=== PATIENT | male | born 1990 | race Caucasian/White ===

== ENCOUNTER 2024-03-14 19:30 | Emergency (ER) | payer BC, SELFPAY ==
--- NOTE | 2024-03-14 21:06 | EDPHYS ---
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 Denies abd pain, blood in toilet, rectal pain. States he has been having diarrhea on and off due to lactose intolerance. . Historical: - Allergies: 19:59 No Known Allergies; nj1 - PMHx: 19:59 None; nj1 - PSHx: 19:59 None; nj1 - Infectious Disease History:: Denies. - Social history:: Smoking status: Reported history of juuling and/or vaping. ROS: 21:06 Constitutional: As per HPI kb Exam: 21:06 Constitutional: This is a well developed, well nourished patient who is awake, alert, kb and in no acute distress. Head/Face: Normocephalic, atraumatic. ENT: Moist Mucous membranes Cardiovascular: Regular rate Respiratory: Respirations even and unlabored. No increased work of breathing. Talking in full sentences Abdomen/GI: Soft, non-tender. No distention Skin: Warm, dry with normal turgor. Normal color. MS/ Extremity: Pulses equal, no cyanosis. Neurovascular intact. Full, normal range of motion. Neuro: Awake and alert, GCS 15, oriented to person, place, time, and situation. Moves all extremities. Normal gait. 21:06 Abdomen/GI: Rectal exam: hemorrhoid(s), external, with thrombosis, without bleeding, without inflammation, without thrombosis, the exam is chaperoned by the nurse, Vital Signs: 19:57 BP 132 / 76; Pulse 84; Resp 18; Temp 98.8(O); Pulse Ox 100% ; Weight 122.47 kg; Height nj1 6 ft. 2 in. ; 21:03 BP 130 / 83; Pulse 77; Resp 18; Pulse Ox 97% on R/A; cm10 19:57 Body Mass Index 34.67 (122.47 kg, 187.96 cm) nj1 MDM: 19:41 Patient medically screened. kb 21:06 Differential diagnosis: fissure, hemorrhoids, GI bleed. Data reviewed: vital signs, kb nurses notes. Test considered but Not performed: Labs: cbc, cmp considered, but no active bleeding, no abd pain or tenderness, VSS, afebrile. 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 Administered Medications: No medications were administered Disposition Summary: 03/14/24 21:05 Discharge Ordered Notes: Location: Home kb Condition: Stable kb Diagnosis - Other hemorrhoids kb Followup: kb - With: Emergency Department - When: As needed - Reason: Worsening of condition Followup: kb - With: Private Physician - When: 2 - 3 days - Reason: Recheck today's complaints, Continuance of care, Re-evaluation by your physician Discharge Instructions: - Discharge Summary Sheet kb - Hemorrhoids, [id number] kb Forms: - Medication Reconciliation Form kb - Thank You Letter kb - Antibiotic Education kb - Prescription Opioid Use kb - Patient Portal Instructions kb - Leadership Thank You Letter kb Addendum: 03/16/2024 07:13 I was immediately available for consultation during this patient's visit. I did not e c2 personally see the patient or discuss the patient with the MACHELLE. . Signatures: Radha Gaytan FNP-C FNP-Debbie Turner, RN RN nj1 Jagjit Fish MD MD ec2
--- NOTE | 2024-03-14 21:06 | ER ---
[facility]urse's Notes [facility] Name: Landon Bal Age: 33 yrs Sex: Male : 1990 Arrival Date: 03/14/2024 Time: 19:30 Bed 16 Private MD: Diagnosis: Other hemorrhoids Presentation: 03/14 19:57 Chief complaint: Patient states: Saw blood when he wiped after he used the bathroom nj1 today. Coronavirus screen: Vaccine status: Patient reports receiving the 2nd dose of the covid vaccine. Ebola Screen: Patient denies travel to an Ebola-affected area in the 21 days before illness onset. Initial Sepsis Screen: Does the patient meet any 2 criteria? No. Patient's initial sepsis screen is negative. Does the patient have a suspected source of infection? No. Patient's initial sepsis screen is negative. Risk Assessment: Do you want to hurt yourself or someone else? Patient reports no desire to harm self or others. Onset of symptoms was March 14, 2024. 19:57 Method Of Arrival: Ambulatory [facility] 19:57 Acuity: TRACEE 3 [facility] Triage Assessment: 20:00 General: Appears in no apparent distress. comfortable, Behavior is calm, cooperative, nj1 appropriate for age. Pain: Denies pain. Historical: - Allergies: 19:59 No Known Allergies; nj1 - PMHx: 19:59 None; nj1 - PSHx: 19:59 None; nj1 - Infectious Disease History:: Denies. - Social history:: Smoking status: Reported history of juuling and/or vaping. Screenin:03 [facility] ED Fall Risk Assessment (Adult) History of falling in the last 3 months, cm10 including since admission No falls in past 3 months (0 pts) Confusion or Disorientation No (0 pts) Intoxicated or Sedated No (0 pts) Impaired Gait No (0 pts) Mobility Assist Device Used No (0 pt) Altered Elimination No (0 pt) Score/Fall Risk Level 0 - 2 = Low Risk Oriented to surroundings, Maintained a safe environment, Hourly rounding (assess needs \T\ fall precautionary measures) done. Abuse screen: Denies threats or abuse. Denies injuries from another. Nutritional screening: No deficits noted. Tuberculosis screening: No symptoms or risk factors identified. Assessment: 21:02 General: Appears in no apparent distress. comfortable, Behavior is calm, cooperative. cm10 Pain: Denies pain. Neuro: No deficits noted. Level of Consciousness is awake, alert, obeys commands, Oriented to person, place, time, situation. Respiratory: No deficits noted. Airway is patent Respiratory effort is even, unlabored, Respiratory pattern is regular, symmetrical. GI: Reports rectal bleeding. GI: Rectal exam: Hemorrhoids noted. Derm: No deficits noted. Skin is intact, Skin is pink, warm \T\ dry. Vital Signs: 19:57 BP 132 / 76; Pulse 84; Resp 18; Temp 98.8(O); Pulse Ox 100% ; Weight 122.47 kg; Height nj1 6 ft. 2 in. ; 21:03 BP 130 / 83; Pulse 77; Resp 18; Pulse Ox 97% on R/A; cm10 19:57 Body Mass Index 34.67 (122.47 kg, 187.96 cm) [facility] ED Course: 19:36 Patient arrived in ED. im 19:41 Radha Gaytan FNP-C [facility]. kb 19:41 Jagjit Fish MD is Attending Physician. kb 19:59 Triage completed. nj1 20:00 Arm band placed on left wrist. nj1 21:02 Served as a straight cutter machine during rectal exam. Patient did not have IV access during this cm10 emergency room visit. 21:03 Patient has correct armband on for positive identification. Placed in gown. Bed in low cm10 position. Call light in reach. Side rails up X2. Provided Education on: ER process and procedures.. Pulse ox on. NIBP on. Warm blanket given. Administered Medications: No medications were administered Medication: 21:03 VIS not applicable for this client. cm10 Outcome: 21:05 Discharge ordered by . kb 21:11 Discharged to home ambulatory, cm10 21:11 Condition: good 21:11 Discharge instructions given to patient, Instructed on discharge instructions, follow up and referral plans. Demonstrated understanding of instructions, follow-up care, 21:11 Patient left the ED. cm10 Signatures: Radha Gaytan FNP-C FNP-Debbie Turner RN RN nj1 Jessica Matthew Clarissa RN RAMON cm10
[2024-03-15 03:09] VITALS: BP 130/83; TEMP 98.8; O2SAT 97
== END 2024-03-14 21:11 | disposition home or self-care (01) ==
LOC: ER 19:30
DX: K64.8 Other hemorrhoids (principal)
CPT/HCPCS: 99283